=== PATIENT | female | born 1985 ===

== ENCOUNTER 2017-04-22 10:23 | Day surgery (SDC) | payer OTHER ==
[2017-04-17 13:28] VITALS: BMI 20.7
[2017-04-22 10:59] VITALS: RESP 18
--- NOTE | 2017-04-22 11:04 | CP.SDSHP ---
Same Day Surgery H & P - History Proposed Procedure: Excision of periclitoral cyst the patient has had a periclitoral cyst for approximately 6 months patient states this started as a small nodule. Patient states it has become progressively larger and more painful. Patient states this started to effect her ability to exercise sit in a chair attend spin classes, have intercourse and is affecting the quality of her life. She desires excision Pre-Op Diagnosis: Periclitoral cyst - Allergies Allergies: Allergies nickel Allergy (Verified 04/17/17 13:27) RASH - Physical Exam Vital Signs: Vital Signs 04/22/17 04/22/17 10:52 10:58 Temperature 98.7 F Pulse Rate 74 74 Respiratory 18 Rate Blood Pressure 118/93 H O2 Sat by Pulse 100 Oximetry - Impression Impression: Painful periclitoral cyst, informed consent obtained we discussed risks benefits and alternatives to treatment and patient agreed to plan of care - Date & Time Date: 04/22/17 Time: 11:05 Short Stay Discharge - Short Stay Discharge Admitting Diagnosis/Reason for Visit: N90.7 Disposition: HOME/ ROUTINE Referrals: Tonya Agrawal MD [Primary Care Provider] -
[2017-04-22] MEDS ORDERED: Silver Nitrate Topical - Stick ONE (11:52)
[2017-04-22] MEDS ORDERED: Midazolam 2 MG/2 ML VIAL ONE ×2 (11:52→12:03)
[2017-04-22] MEDS ORDERED: Bupivacaine 0.5% Inj(30mL) ONE (11:53)
[2017-04-22] MEDS ORDERED: Lactated Ringer's 1,000 ML IV ONE (12:00)
[2017-04-22] MEDS ORDERED: Bupivacaine 0.5% 50 ML IJ ONE (12:07)
[2017-04-22] MEDS ORDERED: Propofol 10 mg/ml Inj (20 ML) ONE ×2 (12:12→12:19)
[2017-04-22] MEDS ORDERED: Ketamine 50 mg/ml Inj (10 ml) ONE (12:18)
[2017-04-22] MEDS ORDERED: Lactated Ringer's 1,000 ML IV SCH (12:51)
[2017-04-22] MEDS ORDERED: HYDROmorphone 0.5 mg/0.5 ml ISec IVP PRN (12:51)
[2017-04-22] MEDS ORDERED: Oxycodone/Acetaminophen 5/325 mg Tab PO ONE (13:41)
[2017-04-22 14:43] VITALS: O2SAT 100
[2017-04-22 15:48] VITALS: BP 122/76; PULSE 60; TEMP 97.8
--- NOTE | 2017-04-22 23:17 | OP ---
PROCEDURE DATE: 04/22/2017 PREOPERATIVE DIAGNOSES: Periclitoral nodule, periclitoral pain. POSTOPERATIVE DIAGNOSES: Periclitoral nodule, periclitoral pain. SURGEON: Tonya Agrawal MD TYPE OF ANESTHESIA: General. ANESTHESIA ADMINISTERED BY: Cinthya Shaikh MD OPERATIVE FINDINGS: Normal external female genitalia. Upon palpation approximately 1 cm and left to the clitoris there was an approximately 1 cm nodule, very tender to palpation on exam in the office. The introitus and urethra were within normal limits. IV FLUID INTAKE: The patient received approximately 300 mL of D5 LR intraoperatively. ESTIMATED BLOOD LOSS: Approximately 5 mL. DESCRIPTION OF PROCEDURE: After informed consent was obtained, we discussed the risks, benefits, and alternatives to the procedure. The patient had been reporting this type of discomfort for several months and the nodule size was increasing in growth. It was affecting the patient's quality of life. She was unable to have intercourse. She was unable to attend spin classes, and it is affecting her daily living activities. The patient opted to proceed to the operating room. The patient was then brought to the OR. She was given general anesthesia. She was prepped and draped in normal sterile fashion and placed in a modified lithotomy position. The nodule was palpated. The area over the nodule was infused with Marcaine and a 2 cm vertical incision was made. The skin was then retracted laterally with an Allis clamp and the nodule was excised using the Metzenbaum scissors. The specimen was sent to pathology. The area was then irrigated. Hemostasis was noted. The base of the incision was closed with 4-0 Vicryl and the incision was also closed with 4-0 Vicryl. All sponge, lap, needle, and instrument counts were correct x2 and the patient was taken to the recovery room in awake and stable condition. Tonya Agrawal MD [email or web address]
== END 2017-04-22 15:55 | disposition home or self-care (01) ==
LOC: H.OPSURG 10:23
PROVIDERS: ATTEND Obstetrics & Gynecology Gynecology
DX: D18.09 Hemangioma of other sites (principal); N90.7 Vulvar cyst; R10.2 Pelvic and perineal pain